=== PATIENT | female | born 1990 | race Caucasian/White ===

== ENCOUNTER 2018-02-20 13:21 | Emergency (ER) | payer MEDICAID ==
[~2018-02-20] VITALS: Ht 170.2 cm; Wt 70.0 kg
[2018-02-20 13:25] VITALS: BP 113/56; PULSE 92; RESP 16; TEMP 97.4; O2SAT 100
--- NOTE | 2018-02-20 14:03 | PD ---
HPI Chief Complaint: Back/ Neck Pain or Injury Time Seen by Provider: 13:46 Travel History International Travel<30 days: No Contact w/Intl Traveler<30days: No Traveled to known affect area: No History of Present Illness HPI 27-year-old female, approximately 21 weeks , presents to the emergency department with complaint of right sided mid back pain 2 days after straining her back from picking up another baby out of a jumper. She said she had immediate onset of back pain at that time. Denies abdominal pain, cramping. Denies vaginal bleeding, leaking, discharge. Reports normal movement. Denies encopresis, incontinence, saddle anesthesias. Denies paresthesias, loss of sensation, decreased range of motion, decreased strength to bilateral lower extremities. Denies IV drug use or cancer. Denies fever, vomiting. Says the pain sometimes does make her dry heaves, but she is not vomiting. Is ambulatory with a normal gait. Rates pain 8/10. Describes it as a stabbing. Worse with movement. No known relieving factors. Has tried ice, heat, bedrest , Tylenol, and ibuprofen with no relief of symptoms. No primary care provider. News Photographer is Dr. Smith. Allergies to penicillin and Vistaril. History of hypothyroidism. Has no other medical complaints. No other modifying factors or associated signs and symptoms. PFSH Past Medical History ?: LMP: 21 WEEKS Social History Tobacco Use: No Allergies-Medications (Allergen,Severity, Reaction): Coded Allergies: Penicillins (Verified Allergy, Severe, Hives, 02/20/18) Reported Meds & Prescriptions Reported Meds & Active Scripts Active No Active Prescriptions or Reported Medications Review of Systems Except as stated in HPI: all other systems reviewed are Neg Physical Exam Narrative GENERAL: Well-nourished, well-developed female patient, in no acute distress; afebrile, nontoxic-appearing; tearful SKIN: Warm and dry. HEAD: Atraumatic. Normocephalic. EYES: Pupils equal and round. No scleral icterus. No injection or drainage. ENT: Mucosa pink and moist. Airway patent. NECK: Trachea midline. CARDIOVASCULAR: Regular rate. RESPIRATORY: No accessory muscle use. GASTROINTESTINAL: ; rounded. MUSCULOSKELETAL: Bilateral lower extremities supple and non-tense with 2+ pedal pulses and sensory intact; with full range of motion and 5/5 strength. 2 + DTRs bilaterally. Active dorsiflexion and extension of bilateral feet. Right straight leg raise is positive for mid back pain. Ambulatory in room with normal gait. Sitting up in bed at 90. No obvious deformities. No clubbing. No cyanosis. No edema. BACK: Midline point tenderness on palpation of the mid thoracic spine. Tenderness on palpation of right thoracic lumbar paraspinal area and musculature area of the thoracic back. No obvious deformities. NEUROLOGICAL: Awake and alert. Oriented 3. No obvious cranial nerve deficits. Motor grossly within normal limits. Normal speech. Moves all extremities. 5/5 strength to all extremities. Sensory intact. PSYCHIATRIC: Appropriate mood and affect; insight and judgment normal. Data Data Last Documented VS Vital Signs Date Time Temp Pulse Resp B/P (MAP) Pulse Ox O2 Delivery O2 Flow Rate FiO2 02/20/18 13:25 97.4 92 16 113/56 (75) 100 Orders Orders Ed Discharge Order (02/20/18 14:24) [facility] Medical Decision Making Medical Screen Exam Complete: Yes Emergency Medical Condition: Yes Medical Record Reviewed: Yes Differential Diagnosis Thoracic back strain, back pain, muscle spasm of thoracic back Narrative Course 27-year-old female, approximately 21 weeks , with strain of thoracic back. She reports midline tenderness on palpation of the thoracic spine. I do not suspect that she has any acute traumatic injury of her thoracic spine secondary to a non-traumatic injury. She picked up a baby out of a jumper and had immediate onset of back pain. I do not feel that imaging is necessary at this time. I did discuss imaging with the patient and she agrees that imaging is not necessary at this time. Her neuro exam is unremarkable. She denies encopresis, incontinence, saddle anesthesias. Denies IV drug use or cancer. She is ambulatory in the room with a normal gait. She has no related complaints. No vaginal complaints. Reports normal movement. Discussed symptom management. Instructed patient to take Tylenol for pain. Instructed patient to follow-up with correctional cook. Instructed patient to follow up with primary care provider. Patient verbalizes understanding and agreement with treatment plan. Patient is medically cleared and stable for discharge. Discussed reasons to return to the emergency department. Patient agrees with treatment plan. The patients vital signs are stable and the patient is stable for outpatient follow-up and treatment. Patient discharged home, stable and in no acute distress. Diagnosis Primary Impression: Strain of muscle and tendon of back wall of thorax, initial encounter Referrals: [facility] News Photographer Primary Care Physician Patient Instructions: General Instructions, Muscle Spasm (ED), Muscle Strain ( ED), Thoracic Back Strain (ED) Additional Instructions: Tylenol as directed and as needed for pain Heating pad and/or ice to affected area to reduce pain Avoid aggravating activities; increase activity as tolerated Follow-up with primary care provider Follow-up with correctional cook Return to emergency department immediately with worsening of symptoms Med/Other Pt SpecificInfo: No Meds Exist/No RX given Scripts No Active Prescriptions or Reported Meds Disposition: 01 DISCHARGE HOME Condition: Stable Dominique Carlson Feb 20, 2018 14:03
== END 2018-02-20 15:02 | disposition home or self-care (01) ==
LOC: NEPK 13:21
DX: S29.012A Strain of muscle and tendon of back wall of thorax, initial encounter (principal); O99.282 Endocrine, nutritional and metabolic diseases complicating pregnancy, second trimester; E03.9 Hypothyroidism, unspecified; X50.0XXA Overexertion from strenuous movement or load, initial encounter; Z3A.21 21 weeks gestation of pregnancy; Z88.0 Allergy status to penicillin; Z34.82 Encounter for supervision of other normal pregnancy, second trimester
CPT/HCPCS: 99282